=== PATIENT | male | born 1965 | race Caucasian/White ===

== ENCOUNTER 2017-01-23 06:17 | Emergency (ER) | payer OTHER ==
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
== END 2017-01-23 07:08 | disposition home or self-care (01) ==
LOC: NAV ERS 06:17
DX: S00.03XA Contusion of scalp, initial encounter (principal); V89.2XXA Person injured in unspecified motor-vehicle accident, traffic, initial encounter
CPT/HCPCS: 70450; 71010; 72125

== ENCOUNTER 2017-02-10 07:36 | Outpatient (CLI) | payer OTHER ==
[2017-02-10 08:04] LABS: #Basophils 0.1 thou/uL (0.0-0.2); #Eosinphils 0.4 thou/uL (0.0-0.7); #Lymphocytes 1.3 thou/uL (1.20-3.40); #Monocytes 0.9 thou/uL (0.11-0.59); #Neutrophils 4.3 thou/uL (1.40-6.50); %Basophils 0.7 % (0.0-1.0); %Lymphocytes 19.1 % (21.0-51.0); %Monocytes 13.2 % (0.0-10.0); %Neutrophils 60.9 % (42.0-75.0); Hemoglobin 15.8 g/dL (14.0-18.0); Mean Corpuscular HGB CONC 34.4 g/dL (32.0-36.0); Mean Corpuscular Hemoglobin 30.9 pg (27.0-31.0); Mean Corpuscular Volume 89.8 fl (80.0-94.0); Mean Platelet Volume 6.1 fL (7.4-10.4); Platelet Count 267 thou/uL (130-400); RBC Distribution Width 11.2 % (11.5-14.5); Red Blood Cell (RBC) Count 5.11 mill/uL (4.70-6.10)
[2017-02-10 08:16] LABS: ALT (SGPT) 31 U/L (8-55); AST (SGOT) 22 U/L (5-34); Albumin 4.3 g/dL (3.5-5.0); Alkaline Phosphatase 56 U/L (40-150); Anion Gap 10 mmol/L (10-20); BUN (Urea Nitrogen) 16 mg/dL (8.4-25.7); Bilirubin, Direct 0.3 mg/dL (0.1-0.3); Bilirubin, Total 0.6 mg/dL (0.2-1.2); Calc. Creatinine Clearance 0 mL/min (70-130); Calcium 9.4 mg/dL (7.8-10.44); Carbon Dioxide 28 mmol/L (22-29); Cardiac Risk 5.5 (Less than 4.5); Chloride 106 mmol/L (98-107); Cholesterol 221 mg/dl (< 200 Desired); Estimated GFR-MDRD 80; Glucose 96 mg/dL (70-105); HDL Cholesterol 40 mg/dL (>60 Neg Risk); LDL Cholesterol, Calculated 161 mg/dL; Potassium 4.2 mmol/L (3.5-5.1); Protein, Total 7.4 g/dL (6.0-8.3); Sodium 140 mmol/L (136-145); Triglycerides 102 mg/dL (Less than 150)
[2017-02-10 08:40] LABS: PSA-Asymptomatic (SCREENING) 0.6 ng/mL (0-4.0); Thyroid Stimulating Hormone 1.2229 uIU/mL (0.35-4.94)
== END 2017-02-10 07:37 | disposition home or self-care (01) ==
LOC: NAV LAB 07:36
PROVIDERS: ATTEND Family Medicine
DX: K21.9 Gastro-esophageal reflux disease without esophagitis (principal); L30.9 Dermatitis, unspecified; R03.0 Elevated blood-pressure reading, without diagnosis of hypertension; R53.82 Chronic fatigue, unspecified
CPT/HCPCS: 36415; 80048; 80061; 80076; 83036; 84443; 85025; 87902; G0103

== ENCOUNTER 2018-07-09 03:02 | Outpatient (CLI) | payer OTHER ==
[2018-07-09 12:15] LABS: #Basophils 0.1 thou/uL (0.0-0.2); #Eosinphils 0.3 thou/uL (0.0-0.7); #Lymphocytes 2.2 thou/uL (1.20-3.40); #Monocytes 1.3 thou/uL (0.11-0.59); #Neutrophils 5.6 thou/uL (1.40-6.50); %Basophils 0.5 % (0.0-1.0); %Eosinophils 3.5 % (0.0-10.0); %Lymphocytes 23.5 % (21.0-51.0); %Monocytes 13.7 % (0.0-10.0); %Neutrophils 58.8 % (42.0-75.0); Hemoglobin 15.5 g/dL (14.0-18.0); Mean Corpuscular HGB CONC 32.9 g/dL (32.0-36.0); Mean Corpuscular Hemoglobin 31.3 pg (27.0-31.0); Mean Platelet Volume 6.8 fL (7.4-10.4); Platelet Count 321 thou/uL (130-400); RBC Distribution Width 11.8 % (11.5-14.5); Red Blood Cell (RBC) Count 4.97 mill/uL (4.70-6.10); White Blood Cell (WBC) Count 9.5 thou/uL (4.8-10.8)
[2018-07-09 12:25] LABS: ALT (SGPT) 30 U/L (8-55); AST (SGOT) 21 U/L (5-34); Albumin 4.3 g/dL (3.5-5.0); Alkaline Phosphatase 64 U/L (40-150); Anion Gap 15 mmol/L (10-20); BUN (Urea Nitrogen) 12 mg/dL (8.4-25.7); Bilirubin, Direct 0.2 mg/dL (0.1-0.3); Bilirubin, Total 0.5 mg/dL (0.2-1.2); Calc. Creatinine Clearance 0 mL/min (70-130); Carbon Dioxide 23 mmol/L (22-29); Cardiac Risk 5.6 (Less than 4.5); Chloride 108 mmol/L (98-107); Cholesterol 214 mg/dl (< 200 Desired); Estimated GFR-MDRD 60; Glucose 95 mg/dL (70-105); HDL Cholesterol 38 mg/dL (>60 Neg Risk); LDL Cholesterol, Calculated 145 mg/dL; Potassium 4.3 mmol/L (3.5-5.1); Protein, Total 7.3 g/dL (6.0-8.3); Sodium 142 mmol/L (136-145); Triglycerides 157 mg/dL (Less than 150)
== END 2018-07-09 03:03 | disposition home or self-care (01) ==
LOC: NAV LAB 03:02
PROVIDERS: ATTEND Family Medicine
DX: F41.1 Generalized anxiety disorder (principal)
CPT/HCPCS: 36415; 80048; 80061; 80076; 85025

== ENCOUNTER 2019-05-22 13:38 | Emergency (ER) | payer OTHER, SELFPAY ==
[2019-05-22] MEDS ORDERED: Fluorescein Opthalmic Strip ONE (14:06)
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
== END 2019-05-22 15:17 | disposition home or self-care (01) ==
LOC: NAV ERS 13:38
DX: S16.1XXA Strain of muscle, fascia and tendon at neck level, initial encounter (principal); S00.93XA Contusion of unspecified part of head, initial encounter; H53.9 Unspecified visual disturbance; K21.9 Gastro-esophageal reflux disease without esophagitis; F41.9 Anxiety disorder, unspecified; Z79.899 Other long term (current) drug therapy; V43.52XA Car driver injured in collision with other type car in traffic accident, initial encounter
CPT/HCPCS: 70450; 72125; L0120

== ENCOUNTER 2021-02-16 18:05 | Emergency (ER) | payer OTHER ==
[2021-02-16] MEDS ORDERED: Morphine 4 MG/ML VIAL ONE (19:53)
[2021-02-16] MEDS ORDERED: Bacitracin 1 PK ONE (20:10)
[2021-02-16] MEDS ORDERED: Sodium Chloride 0.9% 100 ML ONE (20:27)
[2021-02-16] MEDS ORDERED: cefTRIAXone\\ROCEPHIN 2 GM VIAL ONE (20:27)
== END 2021-02-16 21:17 | disposition home or self-care (01) ==
LOC: NAV ERS 18:05
DX: S52.501A Unspecified fracture of the lower end of right radius, initial encounter for closed fracture (principal); S61.511A Laceration without foreign body of right wrist, initial encounter; K21.9 Gastro-esophageal reflux disease without esophagitis; W19.XXXA Unspecified fall, initial encounter
CPT/HCPCS: 29125; 96365; 96375; J0696; J2270; J3490